=== PATIENT | male | born 1990 | race Native Hawaiian/Other Pacific Islander ===

== ENCOUNTER → 2021-02-25 10:30 | Outpatient (CLI) | payer OTHER, MEDICARE, SELFPAY ==
[2021-02-25 11:54] LABS: COVID19 -Nasal RAPID Negative (Negative)
== END ==
PROVIDERS: Family Provider Family Medicine; PCP Family Medicine; Visit Provider Specialist
DX: Z20.822 Contact with and (suspected) exposure to COVID-19 (principal)
CPT/HCPCS: 87635; C9803

== ENCOUNTER → 2021-02-26 14:25 | Day surgery (SDC) | payer OTHER, MEDICARE, SELFPAY ==
[2021-02-14 11:49] VITALS: BMI 19.1
--- NOTE | 2021-02-26 | PATH_ITS ---
[facility] Accession Number: [id number] . 01 Material submitted: . PART A: buttock - LEFT BUTTOCK MASS PART B: buttock - RIGHT BUTTOCK LESION PART C: buttock - RIGHT BUTTOCK CLEFT . 01 Clinical history: . A: PROBABLE SEBACEOUS CYST C: PIGMENTED LESION . 01 Diagnosis: A. Left Buttock, Excision: Epidermal inclusion cyst. . B. Right Buttock, Excision: Deep dermal/subcutaneous tissue cystic structure with surrounding fibrosis and mixed lymphocytic, neutrophilic, and histiocytic inflammation; see note. . Note: The findings are not entirely specific, however, they are most suggestive of a previously ruptured keratinous cyst, such as an epidermal inclusion cyst. . C. Right Buttock, Excision: Compound, predominantly intradermal, melanocytic nevus. [facility] 03/04/2021 1542 Local . 01 Comment: C. Additional step sections were examined on block C2. In addition, a Melan-A stain was performed, which highlights the extent of the lesional cells. . * This test was developed and its performance characteristics determined by [facility]. It has not been cleared or approved by the [place]. Food and Drug Administration. The FDA has determined that such clearance or approval is not necessary. This test is used for clinical purposes. It should not be regarded as investigational or for research. . 01 Electronically signed: . Tenzin Herrera MD, Dermatopathologist NPI- [id number] . 01 Gross description: . A. Received in formalin, labeled left buttock mass and consists of a 4.0 x 3.2 x 2.0 cm potts-pink intact cyst which is inked blue and sectioned to reveal a potts-white inner lining. The cyst contains a potts-brown friable material. Design Engineer sections are submitted in cassettes A1-A2. B. Received in formalin, labeled right buttock lesion and consists of a 2.5 x 2.0 x 1.5 cm disrupted potts cyst with an attached irregular 1.5 x 0.6 cm potts skin. The margin is inked blue. Design Engineer sections are entirely submitted in cassettes B1-B2. C. Received in formalin, labeled right buttock cleft and consists of a 1.3 x 0.9 cm potts skin excised to a depth of 0.5 cm. The margin is inked blue. The specimen is serially sectioned and entirely submitted. . C1: tips. C2: central cross-sections. (EA:[id number]) /MRV 02/27/2021 1118 Local . 01 Pathologist provided ICD-10: L72.0, D22.9 . 01 CPT . 774025, 142043, 014180, [id number] Performed at: 01 [facility] [address] [place] [address], [place], [place] [id number] MD Vel Low MD Phone: [phone]
[2021-02-26 14:47] VITALS: BP 133/84; PULSE 58; RESP 16; TEMP 36.3; O2SAT 100; BMI 19.1
[2021-02-26] MEDS: LACTATED RINGERS 1,000 ML 100 ML IV (15:04)
--- NOTE | 2021-02-26 15:25 | PM.PREOP ---
Pre-operative Note COVID-19 COVID-19 status: Negative Result date/Date tested (Pos, Neg/Pending): 02/25/21 Interval Note History & Physical reviewed/Exam performed by Physician: Yes Changes to H&P: No
[2021-02-26] MEDS: CEFAZOLIN 1 GM VIAL 2 GM IV (15:35)
--- NOTE | 2021-02-26 15:47 | SUR.OPER ---
Prone on padded OR bed, head in foam head support, gel chest rolls, gel pad under knees, pillow under lower legs, toes free of pressure, arms secured on padded arm boards at <90 degrees abduction. Safety belt at thigh.
[2021-02-26] MEDS: BUPIVACAINE 0.5% W/ EPI (PF) 30 ML VIAL INJ (15:50)
[2021-02-26] MEDS: NEOMYCIN/POLYMYXIN/BACITRA UD OINT 1 EACH TOP (17:00)
--- NOTE | 2021-02-26 17:21 | PM.OP.1 ---
Operative Date/Time/Diagnoses Date of procedure: 02/26/21 Time of procedure: 17:21 Pre-op diagnosis: Sebaceous cysts of the buttock. Small irregular mole near the top of cleft of the buttock on the right side. Post-op diagnosis: same Procedure & Clinicians Procedure: Excision of sebaceous cyst from the left buttock (5 x 4 cm) and the right buttock(4 x 3 cm). Excision of small irregular mole measuring 1 x 1 cm. Same procedure as scheduled: No (The excision of the mole was added and consented to in preop area) Indications: Growing occasionally symptomatic masses 1 on each side of the buttock. Found to have a small irregular mole in the cleft of the blood duct not seen initially. Because of its irregular margins I felt that should be removed and talked with the patient about that preoperatively. He was agreeable. Surgeon: Troy lBanca Anesthesia Type: Local Operative Notes Findings: Sebaceous cyst on the left buttock removed intact. It was densely adherent to overlying skin and surrounding fatty tissue. Lesion on the right had no contents and the wall was excised including skin edge. Mole was removed without difficulty. Because of the inflammation in the right-sided cyst I chose to place the patient on 5 days of oral antibiotics postop period Closure Type: primary Specimen(s): none sent Prosthetic devices, grafts, tissues, transplants, or devices: None Estimated Blood Loss (mL): 5 Blood products transfused: none Procedure in detail: Patient was placed prone on the operating room table and prepped and draped in the usual fashion. Local anesthetic was infiltrated in a field block fashion around the lesion in the right buttock cheek. Incision was made in Margarito's lines overlying it and it was excised intact. It was very densely adherent to the overlying skin surrounding fat. Dissection was down to but did not include muscle. Subcu was closed with interrupted 3-0 Vicryl skin was closed running 4-0 nylon suture. Attention was then turned to the right side. Local anesthetic was infiltrated in field block fashion around this lesion in the right buttock higher near the apex of the buttock cleft. Incision was made in in making it through the skin we were in the cyst itself. I excised the edge of the skin and all of the cyst wall. Hemostasis was achieved with cautery. Closure was with 3-0 Vicryl in the subcu and running 4-0 nylon just above this and medial was the small mole that had irregular margins. I excised this with an ellipse down to subcu fat. Closure was with interrupted and vertical mattress 4-0 nylon. Antibiotic ointment was applied to the wounds and a dressing patient was taken to the preop area. No sedation or anesthetic other than local was given. Patient tolerated this very well. Complications: none Post-operative Condition: stable Disposition: other (Preop area) Plan for aftercare: Patient will call and make an appointment to see me in 2 weeks to remove the stitches.
[2021-02-26] MEDS: OXYCODONE/ACETAMINOPHEN 5/325 TABLET 2 TAB PO (17:23)
== END | disposition home or self-care (01) ==
PROVIDERS: Family Provider Family Medicine; PCP Registered Nurse; Referring Provider Specialist; Visit Provider Specialist
PROC: (CPT 11406; principal; 2021-02-26 15:15)
DX: L72.0 Epidermal cyst (principal); D22.5 Melanocytic nevi of trunk; F17.210 Nicotine dependence, cigarettes, uncomplicated
CPT/HCPCS: 11406 ×2; 11401; J0690